=== PATIENT | female | born 1990 | race Two or more races ===

== ENCOUNTER → 2017-11-04 | Outpatient (CLI) | payer MEDICAID | LOC: FIMAGING 11:21 | PROVIDERS: ATTEND Obstetrics & Gynecology | DX: O35.8XX0 Maternal care for other (suspected) fetal abnormality and damage, not applicable or unspecified (principal); Z14.1 Cystic fibrosis carrier; Z14.8 Genetic carrier of other disease; Z87.442 Personal history of urinary calculi; Z3A.13 13 weeks gestation of pregnancy ==

== ENCOUNTER → 2017-12-19 | Outpatient (CLI) | payer MEDICAID | LOC: FIMAGING 07:41 | PROVIDERS: ATTEND Obstetrics & Gynecology | DX: O41.8X20 Other specified disorders of amniotic fluid and membranes, second trimester, not applicable or unspecified (principal); O35.8XX0 Maternal care for other (suspected) fetal abnormality and damage, not applicable or unspecified; O35.1XX0 Maternal care for (suspected) chromosomal abnormality in fetus, not applicable or unspecified; Z3A.19 19 weeks gestation of pregnancy | CPT/HCPCS: 88235-90; 88291-90 ==